=== PATIENT | male | born 1985 | race Caucasian/White ===

== ENCOUNTER → 2018-06-03 07:50 | Outpatient (CLI) | payer BC | END | disposition home or self-care (01) | LOC: D.MRI 07:30 | DX: M54.5 Low back pain (principal) ==

== ENCOUNTER → 2019-07-28 11:17 | Outpatient (CLI) | payer BC ==
--- NOTE | ~2019-07-28 | ST ---
PATIENT:ANEL APPAIH MEDICAL RECORD: [id number] SEX: M LOCATION:[facility] ORDER #: ADMISSION DATE: 07/28/19 AGE OF PATIENT: 33 REFERRING PHYSICIAN: INTERPRETING PHYSICIAN: CASSIA BREWER MD DATE OF SERVICE: 07/28/2019 INDICATIONS: Angina, shortness of breath, hypertension. He was exercised under standard David protocol for 10 minutes achieving 85% of max target heart rate response with 33 mCi of sestamibi injected at peak stress, 11 mCi used previously for rest images. FINDINGS: Gated SPECT reveals decreased ejection fraction at 42% with good wall motion and thickening and brightening throughout all segments. SPECT Imaging: Cardiolite was used as myocardial perfusion agent. There are large areas of reversibility inferiorly, laterally, and anteriorly; this includes the basal, mid, apical, inferior segments basal, mid apical, and anterior segments and basal and mid lateral segments. The degree of reversibility is moderate. The amount of myocardium involved is very large. OVERALL IMPRESSION: This is a high-risk abnormal nuclear stress test, large areas of reversibility inferiorly, anteriorly, and laterally suggestive of multivessel coronary artery disease. TRANSINT:[id number] Voice Confirmation ID: [id number] DOCUMENT ID: [id number] CASSIA BREWER MD CC: NEMO HAYNES [id number] DICTATION DATE: 07/28/19 1627 WORLD LANGUAGE TEACHER: 07/29/19 0037 DEP CLI 07/28/19 [place] [id number] [place] [address]
--- NOTE | ~2019-07-28 | EC ---
PATIENT:ANEL APPIAH DATE OF SERVICE: 07/28/19 SEX: M MEDICAL RECORD: [id number] DATE OF : [birth year] LOCATION:[facility] AGE OF PATIENT: 33 ADMISSION DATE: 07/28/19 REFERRING PHYSICIAN: INTERPRETING PHYSICIAN: CASSIA ZAMORA MD ECHOCARDIOGRAM REPORT ECHO CHARGES 4 ECHO COMPLETE Date: 07/28/19 CLINICAL DIAGNOSIS: CP/DYSPNEA ECHOCARDIOGRAPHIC MEASUREMENTS (adult normal given) AC root (d.<3.7cm) 3.4 cm LV Septum d (<1.2 cm> 1.3 cm Valve Excursion 2.3 cm LV Septum (systole) 1.9 cm Left Atria (s.<4.0cm> 4.7 cm LVPW d(<1.2cm) 1.4 cm RV (d.<2.3cm) 2.6 cm LVPW (sytole) 1.9 cm LV diastole(<5.6CM) 5.8 cm MV E-F(>70mm/sec) cm LV systole 3.9 cm LVOT Diameter 1.9 cm MV exc.(>10mm) cm Est.ejection fraction (50-75%) % DOPPLER: LVIT cm/sec A 39.0 cm/sec E 67.0 cm/sec LA cm/sec RVSP 19.4 mmHg LVOT 125 cm/sec AOP1/2T m/s Asc. Ao 139 cm/sec RVOT 68.0 cm/sec RA cm/sec PA 100 cm/sec AV Gradient Peak 7.7 mmHg AV Mean 4.5 mmHg AV Area 2.0 cm MV Gradient Peak 3.0 mmHg MV Mean 1.3 mmHg MV Area cm COMMENTS: OP - HC Suction Plate Roller Hand: Gosia PEDRAZAOE Insole Bottom Filler: 1 Dr. Zamora TAPE# PACS Pericardial Effusion N DATE OF SERVICE: FINDINGS: 1. Left ventricular chamber size is upper limits of normal. Left ventricular systolic function is preserved at 55%. 2. Left atrium is enlarged at 4.7 cm. Right atrium and right ventricular chamber sizes are as well mildly dilated. 3. Valvular structures have normal structure and motion. 4. Doppler interrogation reveals no significant valvular insufficiency or stenosis and pulmonary systolic pressure is normal at 19 mmHg. ECHOCARDIOGRAM REPORT [id number] ANEL APPIAH 5. No evidence of pericardial effusion or left ventricular thrombus. TRANSINT:[id number] Voice Confirmation ID: [id number] DOCUMENT ID: [id number] CASSIA ZAMORA MD CC: [id number] DICTATION DATE: 07/28/19 1618 BILINGUAL RECEPTIONIST: 07/28/19 [address] [place] [id number] [place] [id number]
== END | disposition home or self-care (01) ==
LOC: D.HCCECHO 11:17
PROVIDERS: ATTEND Internal Medicine Interventional Cardiology
DX: R06.02 Shortness of breath (principal)

== ENCOUNTER 2019-08-01 07:20 | Outpatient (CLI) | payer BC ==
[~2019-08-01] VITALS: Ht 177.8 cm; Wt 112.7 kg
--- NOTE | ~2019-08-01 | HEMODYNAMI ---
PATIENT:ANEL APPIAH MEDICAL RECORD: [id number] : 89 LOCATION:[facility] ADMISSION DATE: 08/01/19 Generatedon:08/01/20199:36 Patient name: ANEL APPIAH Patient #: [id number] : 1985 Date of study: 08/01/2019 Page: Of Hemodynamic Procedure Report Patient Data Patient Demographics Procedure consent was obtained First Name: ANEL Gender: Male Last Name: BIJAL : 1985 [facility] Initial: ANAM Age: 33 year(s) Patient #: [id number] Race: SSN: [id number] Additional ID: [id number] Contact details [address]: [address] [place] [address] [place] [facility] [place] [place]: [address] Past Medical History Allergies: No known allergies Admission Admission Data Admission Date: 08/01/2019 Admission Time: 7:20 Arrival Date: 08/01/2019 Arrival Time: 0:00 Admit Source: Other Insurance Payor: Private health insurance [facility] #: [id number] Height (in.): 62 BSA: 2.11 (m2) Height (cm.): 157.48 BMI: 46.09 (kg/m2) Weight (lbs.): 252 Weight (kg.): 114.31 Lab Results Lab Result Date: 08/01/2019 Lab Result Time: 0:00 Biochemistry Name Units Result Min Max BUN mg/dl 8 --(*---)-- 7 18 Creatinine mg/dl 0.8 --(-*--)-- 0.6 1.3 eGFR ml/min 90 --(*---)-- 90 120 NONAFRICAN CBC Name Units Result Min Max Hematocrit % 52.2 --(---*)-- 42 54 Hemoglobin g/dl 18.6 --(----)-* 13.5 17.5 Procedure Procedure Types Cath Procedure Diagnostic Procedure [facility] w/Coronaries Procedure Description Procedure Date Procedure Date: 08/01/2019 Procedure Start Time: 9:26 Procedure End Time: 9:34 Procedure Staff Name Function Alvarado Zamora MD Performing Physician Saima Gonzalez RT Monitor John Lima RN Nurse Huyen Orellana RT Scrub Procedure Data Cath Procedure Fluoroscopy Diagnostic fluoroscopy Total fluoroscopy Time: 1.3 time: 1.3 min min Diagnostic fluoroscopy Total fluoroscopy dose: 440 dose: 440 mGy mGy Contrast Material Contrast Material Type Amount (ml) Isovue 300 45 Entry Location Entry Primary Successful Side Size Upsize Upsize Entry Closure Gallagher ccessful Closure Location (Fr) 1 (Fr) 2 (Fr) Remarks Device Remarks Radial Right 6 Fr Mechanical artery Short Compression Estimated blood loss: 10 ml Diagnostic catheters Device Type Used For End Catheter Placement DIAGNOSTIC [place] 110cm 5 Procedure Fr catheter (957302) Procedure Complications No complications Procedure Medications Medication Administration Route Dosage Oxygen etCO2 Nasal cannula 2 l/min Lidocaine 2% added to field 20 Heparin Flush Bag added to field 2 bags (1000units/500ml NS) 0.9% NaCl I.V. 100 ml/hr Radial Cocktail added to field 1 syringe (Verapamil 2mg/Nitro 400mcg/Heparin 1500units) Versed I.V. 2 mg Fentanyl I.V. 100 mcg Versed I.V. 2 mg Fentanyl I.V. 100 mcg Versed I.V. 2 mg Versed I.V. 1 mg Hemodynamics Rest BSA: 2.11 (m2) HGB: 18.6 (g/dl) O2 Consumption: Estimated: 283.88 (ml/min) O2 Co nsumption indexed: Estimated:134.54 (ml/min/m) Heart Rate: 95 (bpm) Snapshots Pre Cath Intra NCS Post Cath Vital Signs Time Heart Resp SPO2 etCO2 NIBP (mmHg) Rhythm Pain Sedation Rate (ipm) (%) (mmHg) Status Level (bpm) 9:09:21 96 19 96 38.3 155/93(121) NSR 0 (11) 10(A) , No pain 9:13:37 97 15 96 39.8 151/93(119) NSR 0 (11) 10(A) , No pain 9:17:51 98 17 95 36.8 156/100(130) NSR 0 (11) 10(A) , No pain 9:23:06 95 17 95 35.3 151/84(118) NSR 0 (11) 10(A) , No pain 9:27:20 96 13 96 33.8 161/95(129) NSR 0 (11) 9(A) , No pain 9:32:25 102 15 96 20.3 161/86(112) NSR 0 (11) 9(A) , No pain 9:35:13 98 15 94 18 164/86(131) NSR 0 (11) 10(A) , No pain Medications Time Medication Route Dose Verified Delivered Reason Notes Effectiveness by by 9:11:24 Oxygen etCO2 2 l/min Alvaradoparish Lopez used for Nasal Noah Lima RN procedure cannula 9:11:30 Lidocaine 2% added 20ml Alvaradoparish Childers for local to vial Noah Zamora MD anesthetic field 9:11:37 Heparin Flush added 2 bags Alvarado Childers used for Bag to Noah Zamora MD procedure (1000units/500ml field NS) 9:11:46 0.9% NaCl I.V. 100 Alvarado Lopez Per ml/hr Noah Lima RN physician 9:11:57 Radial Cocktail added 1 Alvarado Childers for (Verapamil to syringe Noah Zamora MD vasodilation 2mg/Nitro field 400mcg/Heparin 1500units) 9:24:14 Versed I.V. 2 mg Alvarado Lopez for sedation Noah Lima RN 9:24:20 Fentanyl I.V. 100 mcg Alvarado Lopez for sedation Noah Lima RN 9:27:05 Versed I.V. 2 mg Alvarado Lopez for sedation Noah Lima RN 9:27:09 Fentanyl I.V. 100 mcg Alvarado Lopez for sedation Noah Lima RN 9:30:12 Versed I.V. 2 mg Alvarado Lopez for sedation Noah Lima RN 9:32:17 Versed I.V. 1 mg Alvarado Lopez for sedation Noah Lima RN Procedure Log Time Note 8:33:36 Arrival Date: 08/01/2019 12:00:00 AM 8:34:02 Admit Source: Other 8:34:27 Insurance Payor : Private health insurance 8:34:33 Patient Height : 62 inches 8:34:41 Patient Weight : 252 lbs 8:50:27 Buffie Lima RN sent for patient. Start room use. 8:57:17 Procedure Status Elective Heart Cath (OP). 8:58:33 Time tracking: Regular hours (M-F 7:00 - 5:00) 8:58:41 Plan of Care:Hemodynamics will remain stable., Cardiac rhythm will remain stable., Comfort level will be maintained., Respiratory function will remain adequate., Patient/ family verbilizes understanding of procedure., Procedure tolerated without complication., Recovers from procedure without complications.. 8:59:04 Patient received from Pre/Post Procedure Room to CCL 2 Alert and oriented. Tansferred to table in Supine position. 8:59:10 Signed procedure consent form obtained from patient. 8:59:11 Warm blankets applied, and rebecca hugger turned on for patient comfort. 8:59:12 Correct patient and procedure confirmed by team. 8:59:13 ECG and BP/O2 sat monitors applied to patient. 9:00:23 Lab Result : BUN 8 mg/dl 9:00:23 Lab Result : Hemoglobin 18.6 g/dl 9:00:23 Lab Result : Hematocrit 52.2 % 9:00:23 Lab Result : Creatinine 0.8 mg/dl 9:00:23 Lab Result : eGFR NONAFRICAN 90 ml/min 9:08:17 Vital chart was started 9:08:19 Baseline sample Acquired. 9:08:24 Full Disclosure recording started 9:08:27 Rhythm: sinus rhythm 9:08:45 H&P Date Dictated: 07/26/2019 Within 30 days and on chart., H&P Addendum completed by physician on day of procedure. (MUST COMPLETE FOR ALL OUTPATIENTS). 9:08:47 Pre-procedure instructions explained to patient. 9:08:49 Family in waiting room. 9:08:51 Patient NPO since Midnight. 9:08:58 Patient allergic to No known allergies 9:09:01 Is the patient allergic to Iodine/contrast media? No. 9:09:04 Was the patient premedicated? Yes 9:09:06 Is patient on blood thinner?No 9:09:08 Patient diabetic? No. 9:09:13 Snore? Yes 9:09:14 Sleep apnea? No 9:09:21 Dentures? No ? 9:09:26 Patient pain scale 0/10 ?. 9:09:31 IV patent on arrival in left forearm with 0.9% NaCl at KVO. 9:09:34 Lab results completed and on chart. 9:10:10 Stress Test: yes; abnormal multivessel 9:10:16 Risk of Mortality: .1 9:10:20 Risk of blood transfusion: .1 9:10:23 Risk of FERNANDO: .8 9:10:27 Right Radial & Right Groin area was prepped with chlora-prep and draped in sterile fashion 9:10:27 Alarms reviewed by R. N. 9:10:28 Sharps counted by scrub and verified by R.N. 9:10:29 Physician paged 9:10:36 Use device set Radial Dx or PCI 9:10:37 ACIST Syringe (90475) opened to sterile field. 9:10:38 Medline Cath Pack ([id number]) opened to sterile field. 9:10:39 Bag Decanter (2002) opened to sterile field. 9:10:39 ACIST Hand Control (00730) opened to sterile field. 9:10:40 ACIST Manifold (63189) opened to sterile field. 9:10:40 Tegaderm 4 x 4 (1626W) opened to sterile field. 9:10:42 MBrace Wrist Support (457446943) opened to sterile field. 9:10:44 EMERALD Guide Wire (716-287) opened to sterile field. 9:10:46 SHEATH 6FR RAIN (2829217) opened to sterile field. 9:11:06 1) 90+ Normal kidney functon but urine findings or structural abnormalities or genetic trait point to kidney disease. 9:11:09 Maximum allowable contrast dose (3.7 X eGFR X 0.75)249 ml. 9:11:24 Oxygen 2 l/min etCO2 Nasal cannula was administered by John Lima RN; used for procedure; Verbal order read back and verified. 9:11:30 Lidocaine 2% 20ml vial added to field was administered by Alvarado Zamora MD; for local anesthetic; Verbal order read back and verified. 9:11:37 Heparin Flush Bag (1000units/500ml NS) 2 bags added to field was administered by Alvarado Zamora MD; used for procedure; Verbal order read back and verified. 9:11:46 0.9% NaCl 100 ml/hr I.V. was administered by Buffie Lima RN; Per physician; Verbal order read back and verified. 9:11:57 Radial Cocktail (Verapamil 2mg/Nitro 400mcg/Heparin 1500units) 1 syringe added to field was administered by Alvarado Zamora MD; for vasodilation; Verbal order read back and verified. 9::53 Physician arrived 9::53 --------ALL STOP TIME OUT------ 9::56 Final Timeout: patient, procedure, and site verified with staff and physician. All members of the team are in agreement. 9::58 Right Radial & Right Groin site verified by team. 9:24:04 Fire Safety Assessment: A--An alcohol-based skin anteseptic being used preoperatively., C--Open oxygen or nitrous oxide is being used., D--An ESU, laser, or fiber-optic light is being used. 9:24:13 Physical assessment completed. ASA score P 2 - A patient with mild systemic disease as per Alvarado Zamora MD. 9:24:14 Versed 2 mg I.V. was administered by John Lima RN; for sedation; Verbal order read back and verified. 9:24:17 Sedation plan: IV Moderate Sedation Medication:Versed, Fentanyl 9:24:20 Fentanyl 100 mcg I.V. was administered by John Lima RN; for sedation; Verbal order read back and verified. 9:26:04 Procedure started. 9:26:23 Local anesthetic to right radial artery with Lidocaine 2% by Alvarado Zamora MD.INITIAL ACCESS ONLY 9:26:43 A 6 Fr Short sheath was inserted into the Right Radial artery 9:27:05 Versed 2 mg I.V. was administered by John Lima RN; for sedation; Verbal order read back and verified. 9:27:09 Fentanyl 100 mcg I.V. was administered by John Lima RN; for sedation; Verbal order read back and verified. 9:27:11 A DIAGNOSTIC [place] 110cm 5 Fr catheter (969194) was advanced over the wire and used for Procedure. 9:27:19 Zero performed for pressure channel P1 9:28:09 LV gram done using MEJIA 9:28:34 EF : 50 % 9:29:06 RCA angiography performed. 9:29:25 LCA angiography performed. 9:30:12 Versed 2 mg I.V. was administered by John Lima RN; for sedation; Verbal order read back and verified. 9:30:21 Catheter removed. 9:30:42 ZEPHYR LARGE TR BAND (028144) opened to sterile field. 9:30:44 NEEDLE Cook 21G 4cm Radial (H17546) opened to sterile field. 9:31:20 Sheath removed intact; hemostasis achieved with Mechanical Compression to the Right Radial artery. 9:31:22 Procedure ended.(Physican Out) 9:31:36 Fluoroscopy time 01.30 minutes. 9:31:40 Fluoroscopy dose: 440 mGy 9:31:40 Flurop Dose total: 440 9:31:46 Dose Area Product 16853 mGy/cm. 9:31:50 Contrast amount:Isovue 300 45ml. 9:31:53 Maximum allowable dose exceeded? No. 9:31:54 Sharps counted by scrub and verified by R.N. 9:31:58 Rumely band inflated with 10cc of air. 9:32:00 Insertion/operative site no bleeding no hematoma. 9:32:15 Post right radial artery:stable 9:32:17 Versed 1 mg I.V. was administered by John Lima RN; for sedation; Verbal order read back and verified. 9:32:23 Post-procedure physical assessment completed. ASA score P 2 - A patient with mild systemic disease as per Alvarado Zamora MD. 9:32:25 Post procedure rhythm: unchanged. 9:32:28 Estimated blood loss: 10 ml 9:32:30 Post procedure instruction explained to patient.Patient verbalizes understanding. 9:32:56 Procedure type changed to Cath procedure, Diagnostic procedure, LHC, [facility] w/Coronaries 9:33:09 Procedure and supply charges have been captured, reviewed, submitted and are correct. 9:33:27 Procedure and supply charges have been captured, reviewed, submitted and are correct. 9:33:43 Procedure Complication : No complications 9:33:46 Vital chart was stopped 9:33:49 [facility] Findings: mild to moderate CAD (<70%) 9:33:55 Operative report dictated upon procedure completion. 9:33:55 See physician's report for complete and final results. 9:33:57 Report given to Pre/Post Procedure Room. 9:34:01 Patient transfered to Pre/Post Procedure Room with Stretcher. 9:34:04 Procedure ended. 9:34:04 Full Disclosure recording stopped 9:34:10 End room use (Document Last) 9:35:49 End room use (Document Last) Device Usage Item Name Manufacture Quantity Catalog Hospital Part Current Minima l Lot# / Number Charge Number Stock Stock Serial# Code ACIST Acist 1 40192 565198 [id number] 20 Syringe Medical (46059) Systems Inc Medline Medline 1 [id number] 643517 20537 571955 5 Cath Pack ([id number]) Bag Microtek 1 2001S 190307 06442 833555 5 Decanter Medical Inc. () ACIST Hand Acist 1 61752 984023 174767 384608 5 Control Medical (32664) Systems Inc ACIST Acist 1 43541 239513 067300 646576 5 Manifold Medical (55879) Systems Inc Tegaderm 4 3M 1 1626W 163284 037367 619049 5 x 4 (1626W) MBrace Advanced 1 [id number] 534420 80235 449532 5 Wrist Vascular Support Dynamics ([id number]) EMERALD Cardinal 1 502-097 611337 301044 542375 5 Guide Wire Health (528-250) SHEATH 6FR Cardinal 1 7893058 494883 3640143 713838 5 [facility] (2680096) DIAGNOSTIC Terumo 1 40-6893 654059 849628 664638 5 [place] 110cm 5 Fr catheter (345933) ZEPHYR Cardinal 1 913589 816126 4690502 882854 5 LARGE TR Health BAND (951070) NEEDLE [facility] 1 [id number] 766415 568739 084622 5 21G 4cm Radial (M79279) Signature Audit [place] Stage Time Signature Unsigned Intra-Procedure 08/01/2019 Saima Gonzalez 9:33:28 AM RT(R) Intra-Procedure 08/01/2019 Saima Gonzalez 9:35:49 AM RT(R) Intra-Procedure 08/01/2019 John Lima RN 9:36:21 AM Intra-Procedure 08/01/2019 Alvarado Zamora 9:36:47 AM Signatures Performing Physician : Signature : Alvarado Zamora MD Date : Time : Monitor : Saima Carlos Signature : RT Date : Time : Nurse : Buffie Lima RN Signature : Date : Time : [address] [place] [address]
[2019-08-01 07:49] VITALS: BP 154/86; Ht 177.8 cm; Wt 112.7 kg
[2019-08-01 08:16] LABS: BASOPHILS 0.5 % (0-2); EOSINOPHILS 1.3 % (0-7); HEMATOCRIT 52.2 % (42.0-54.0); HEMOGLOBIN 18.6 g/dL (13.5-17.5); IMMATURE GRANULOCYTES 1.8 % (0-5); LYMPHOCYTES 24.5 % (15-50); MCH 34.1 pg (26.0-34.0); MCHC 35.6 g/dL (31.0-37.0); MCV 95.8 fL (80.0-100.0); MEAN PLATELET VOLUME 9.9 fL (7.4-10.4); MONOCYTES 7.1 % (2-11); NEUTROPHILS 64.8 % (40-80); PLATELET COUNT 254 10x3/uL (130-400); RBC 5.45 10x6/uL (4.20-6.10); RDW 12.7 % (11.5-14.5); WBC 8.7 10x3/uL (4.8-10.8)
[2019-08-01 08:34] LABS: ALT (SGPT) 37 U/L (10-68); CALC OSMOLALITY 272 mosm/kg (275-300); CALCIUM 9.1 mg/dL (8.5-10.1); CHLORIDE - SERUM 104 mmol/L (98-107); CHOL - HDL RATIO 11.9 ratio (2.3-4.9); CHOLESTEROL, TOTAL 226 mg/dL (0-200); CREATININE - SERUM 0.8 mg/dL (0.6-1.3); GLUCOSE 81 mg/dL (74-106); HDL CHOLESTEROL 19 mg/dL (32-96); LDL CHOLESTEROL 175 mg/dL (0-100); LDL-HDL RATIO 9.2 ratio (1.5-3.5); SODIUM 138 mmol/L (136-145); TRIGLYCERIDE 160 mg/dL (30-200); UREA NITROGEN 8 mg/dL (7-18); eGFR NON AFRICAN AMERICAN > 90 mL/min (90-120)
[2019-08-01 08:36] LABS: POTASSIUM - SERUM 5.4 mmol/L (3.5-5.1)
--- NOTE | 2019-08-01 09:45 | NUR ---
PT RECEIVED VIA STRETCHER FROM [employer] FOR [employer]. PT SLEEPY BUT VERALLY AROUSABLE. DENIES PAIN OR DISCOMFORT. PT PLACED ON CARDIAC MONITORS AND O2 VIA NC AT 3L. HR NSR RATE 95, BP 137/77, R 15, RR 11. R WRIST W Z BAND AND IMMOBILIZER IN PLACE, DRESSING CDI NO BLEEDING OR S/S HEMATOMA. ARM PINK AND WARM, CAP REFILL BRISK. PT INSTRUCTED TO KEEP ARM STRAIGHT HE VERBALIZED UNDERSTANDING. CALL LIGHT IN REACH.
--- NOTE | 2019-08-01 10:15 | NUR ---
PT SLEEPING, WRIST W ZBAND AND IMMOBILIZER IN PLACE. DRESSING REMAINS CDI NO BLEEDING OR S/S HEMATOMA. CAP REFILL BRISK. HR 94, BP 127/80, RR 20, SAT 95. CALL LIGHT IN REACH, TOLERATING PO FLUIDS.
[2019-08-01] MEDS ORDERED: BAYER CHEWABLE81 MG PO (10:23)
--- NOTE | 2019-08-01 11:00 | NUR ---
PT STILL VERY DROWSY, 4CC AIR REMOVED FROM Z BAND, NO BLEEDING OR S/S HEMATOMA NOTED. HR 91, BP 144/77, SAT 92, RR 18. NO C/O PAIN OR DISCOMFORT. CALL LIGHT IN REACH, DENIES NEEDS AT THIS TIME.
[2019-08-01] MEDS ORDERED: BYSTOLIC10 MG PO (11:40)
--- NOTE | 2019-08-01 11:55 | NUR ---
3 ADD'L CC AIR REMOVED FROM Z BAND, NO BLEEDING OR S/S HEMATOMA NOTED. PT STILL DROWSY, VERBALLY AROUSABLE. DENIES PAIN OR DISCOMFORT. VSS. CALL LIGHT IN REACH
--- NOTE | 2019-08-01 12:10 | NUR ---
DISCHARGE INSTRUCTIONS REVIEWED W PT, VERBALIZED UNDERSTANDING. IV REMOVED W CATH INTACT. MONITORS AND O2 REMOVED, ZBAND AND IMMOBILIZER IN PLACE, ALL AIR REMOVED FROM Z BAND. NO BLEEDING OR S/S HEMATOMA NOTED. PT UP TO DRESS FOR DISCHARGE
--- NOTE | 2019-08-01 12:42 | NUR ---
PT DISCHARGED VIA WC TO PRIVATE VEHICLE. PT HAD ALL BELONGINGS AND DISCHARGE INSTRUCTIONS
--- NOTE | 2019-08-02 11:25 | OP ---
PATIENT NAME: ANEL APPIAH MEDICAL RECORD: [id number] :89 LOCATION:[facility] ADMISSION DATE: SURGEON: CASSIA BREWER MD DATE OF OPERATION: 08/01/2019 DATE OF SERVICE: 08/01/2019 PROCEDURES: 1. Left heart catheterization. 2. Selective coronary angiography. 3. Left ventriculogram. DESCRIPTION OF PROCEDURE IN DETAIL: After informed consent was obtained and after a detailed description of the risks, benefits as well as alternative therapies, the patient elected to proceed with angiogram and heart catheterization. The right radial area was prepped and draped in normal sterile fashion. Right radial artery was cannulated via modified Seldinger technique with placement of 5-Kazakh sheath. All catheters exchanged through this sheath. FINDINGS: Left ventriculogram was performed in standard 30-degree MEJIA view, reveals good cardiac wall motion, ejection fraction 50%. SELECTIVE CORONARY ANGIOGRAPHY: Left main, left anterior descending, left circumflex, right coronary artery are all smooth-walled vessels with no angiographic evidence of coronary artery disease. OVERALL IMPRESSION: 1. No angiographic evidence of coronary artery disease. 2. Normal left heart pressures. 3. Normal ventricular systolic function. Chest pain is noncardiac in etiology. TRANSINT:[id number] Voice Confirmation ID: [id number] DOCUMENT ID: [id number] CASSIA BREWER MD at 1125 CC: [id number] DICTATION DATE: 08/01/19 0933 MEDIA BUYER: 08/01/19 1111 DEP CLI 08/01/19 [place] [id number] [place] [id number]
== END 2019-08-01 12:42 | disposition home or self-care (01) ==
LOC: D.CATH 07:20
PROVIDERS: ATTEND Internal Medicine Interventional Cardiology
DX: R07.9 Chest pain, unspecified (principal); I20.9 Angina pectoris, unspecified; I10 Essential (primary) hypertension; R06.02 Shortness of breath